=== PATIENT | female | born 1990 | race Caucasian/White ===

== ENCOUNTER 2016-07-31 08:07 | Inpatient (IN) | payer BC, OTHER ==
[2016-07-31] MEDS ORDERED: Sodium Chloride 0.9% 10 ML Syringe FLUSH PRN (09:31)
[2016-07-31] MEDS ORDERED: Nalbuphine 20 MG/1 ML Amp IVPUSH PRN (09:31)
[2016-07-31] MEDS ORDERED: Lidocaine 1% 50 ML MDV INJECT ONE (09:31)
[2016-07-31] MEDS ORDERED: Ondansetron 4 MG Tab.DIS PO PRN (09:31)
[2016-07-31] MEDS ORDERED: Oxytocin/Lactated Ringers 10 UNIT/1,000 ML BAG IV SCH ×2 (09:45→19:50)
--- NOTE | 2016-07-31 15:58 | PCM.PREANE ---
Preanesthetic Assessment - Anesthesia/Transfusion/Family Hx Anesthesia History: Prior Anesthesia Without Reaction Family History of Anesthesia Reaction: No Transfusion History: No Prior Transfusion(s) - Review of Systems General: No Symptoms Pulmonary: No Symptoms Cardiovascular: No Symptoms Gastrointestinal: Vomiting Neurological: Seizure (Epilepsy ) Other: Reports: None - Physical Assessment NPO Status Date: 07/31/16 NPO Status Time: 12:30 Pulse: 83 O2 Sat by Pulse Oximetry: 98 Respiratory Rate: 16 Blood Pressure: 122/72 Temperature: 98.2 C Vital Signs: Last Vital Signs Temp 37.3 C 07/31/16 10:00 Pulse 98 07/31/16 10:00 Resp 16 07/31/16 10:00 BP 122/72 07/31/16 10:00 Pulse Ox 98 07/31/16 10:00 Height: 1.65 m Weight: 92.986 kg ASA Class: 2 Mental Status: Alert & Oriented x3 Airway Class: Mallampati = 1 Dentition: Reports: Normal Dentition Thyro-Mental Finger Breadths: 3 Mouth Opening Finger Breadths: 5 ROM/Head Extension: Full Lungs: Clear to auscultation, Normal respiratory effort Cardiovascular: Regular Rate, Regular Rhythm - Lab Values: Laboratory Last Values WBC 7.63 K/mm3 (3.98-10.04) 07/31/16 09:54 RBC 4.38 M/mm3 (3.98-5.22) 07/31/16 09:54 Hgb 11.5 gm/L (11.2-15.7) 07/31/16 09:54 Hct 35.4 % (34.1-44.9) 07/31/16 09:54 MCV 80.8 fl (79.4-94.8) 07/31/16 09:54 MCH 26.3 pg (25.6-32.2) 07/31/16 09:54 MCHC 32.5 g/dl (32.2-35.5) 07/31/16 09:54 RDW Std Deviation 37.8 fL (36.4-46.3) 07/31/16 09:54 Plt Count 237 K/mm3 (182-369) 07/31/16 09:54 MPV 11.8 fl (9.4-12.3) 07/31/16 09:54 Neut % (Auto) 75.5 % (34.0-71.1) H 07/31/16 09:54 Lymph % (Auto) 16.4 % (19.3-51.7) L 07/31/16 09:54 [place] % (Auto) 6.0 % (4.7-12.5) 07/31/16 09:54 Eos % (Auto) 1.3 (0.7-5.8) 07/31/16 09:54 Baso % (Auto) 0.5 % (0.1-1.2) 07/31/16 09:54 Neut # (Auto) 5.76 K/mm3 (1.56-6.13) 07/31/16 09:54 Lymph # (Auto) 1.25 K/mm3 (1.18-3.74) 07/31/16 09:54 [place] # (Auto) 0.46 K/mm3 (0.24-0.36) H 07/31/16 09:54 Eos # (Auto) 0.10 K/mm3 (0.04-0.36) 07/31/16 09:54 Baso # (Auto) 0.04 K/mm3 (0.01-0.08) 07/31/16 09:54 Urine Color Light yellow (Yellow) 07/31/16 08:07 Urine Appearance Clear (Clear) 07/31/16 08:07 Urine pH 7.0 (5.0-8.0) 07/31/16 08:07 Ur Specific [place] 1.010 (1.005-1.030) 07/31/16 08:07 Urine Protein Negative (Negative) 07/31/16 08:07 Urine Glucose (UA) Negative (Negative) 07/31/16 08:07 Urine Ketones Negative (Negative) 07/31/16 08:07 Urine Occult Blood Trace-intact (Negative) H 07/31/16 08:07 Urine Nitrite Negative (Negative) 07/31/16 08:07 Urine Bilirubin Negative (Negative) 07/31/16 08:07 Urine Urobilinogen 0.2 (0.2-1.0) 07/31/16 08:07 Ur Leukocyte Esterase Trace (Negative) H 07/31/16 08:07 - Allergies Allergies/Adverse Reactions: Allergies Allergy/AdvReac Type Severity Reaction Status Date / Time No Known Allergies Allergy Verified 07/31/16 09:30 - Blood Blood Available: Yes Product(s) Available: PRBC - Anesthesia Plan Pre-Op Medication Ordered: None - Acknowledgements Anesthesia Type Planned: Epidural Pt an Appropriate Candidate for the Planned Anesthesia: Yes Alternatives and Risks of Anesthesia Discussed w Pt/Guardian: Yes Pt/Guardian Understands and Agrees with Anesthesia Plan: Yes PreAnesthesia Questionnaire HEENT History: Reports: Other (see below) Other 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 History: 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 Neurological History: Reports: Seizure, Other (see below) Other Neuro History: last seizure 2 1/2 years ago - SUBSTANCE USE Smoking Status *Q: Never Smoker Days Per Week of Alcohol Use: 0 Recreational Drug Use History: No - HOME MEDS Home Medications: Home Meds Folic Acid 1 mg PO BEDTIME 07/31/16 [History] Vit W-Ca,Fe,FA(<1 mg) [ Vitamins] 1 each PO DAILY 07/31/16 [ History] Zonisamide [Zonegran] 100 mg PO BEDTIME 07/31/16 [History] lamoTRIgine [Lamotrigine] 100 mg PO DAILY 07/31/16 [History] - CURRENT (IN HOUSE) MEDS Current Meds: Current Medications Lactated Ringer's (Ringers, Lactated) 1,000 mls @ 100 mls/hr IV ASDIRECTED CHARANJIT Oxytocin/Lactated Ringer's (Pitocin In Lr 10 Units/1,000 Ml) 10 unit in 1,000 mls @ 500 mls/hr IV TITRATE CHARANJIT Nalbuphine HCl (Nubain) 10 mg IVPUSH Q2H PRN PRN Reason: Pain (moderate 4-6) Ondansetron HCl (Zofran Odt) 4 mg PO Q4H PRN PRN Reason: Nausea/Vomiting Sodium Chloride (Saline Flush) 10 ml FLUSH ASDIRECTED PRN PRN Reason: Keep Vein Open Discontinued Medications Lidocaine HCl (Xylocaine 1%) 2 ml INJECT ONETIME ONE Stop: 07/31/16 09:32
--- NOTE | 2016-07-31 16:34 | PCM.LDHP ---
L&D History of Present Illness - General Date of Service: 07/31/16 Admit Problem/Dx: Patient Status Order with Admit Dx/Problem 07/31/16 09:32 Patient Status [ADT] Routine Admission Diagnosis/Problem Admission Diagnosis/Problem 07/31/16 15:59 Intrauterine at 40-4/7 weeks gestation colin 2-3 minutes apart - early labor. Source of Information: Patient History Limitations: Reports: No limitations - History of Present Illness Introduction:: History of Present Illness: Jacqueline is a 26-year-old female who presents for labor with contractions 2-3 minutes apart and Artificial Rupture of Membranes. She has a history of epilepsy and sees Dr. Ortez for medication management. She has been seizure free for over two years. STEPHAN was 07/27/16 based on early ultrasound done on 01/24/17. She is comfortable still and states contractions were starting to get more intense. She reports good activity. 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 This is her first . STEPHAN was 07/27/16. She had an induction date set for . Menarche was at age 15. Menses are irregular - she does not menstruate monthly. LMP was around 07/02/16. Denies history of STIs. Blood type O positive, antibody negative. Rubella immune, VDRL/RPR negative. HBsAg negative. Chlamydia negative, Gonorrhea negative. HIV screen not done with labs. GBS negative. Tdap given. Past Medical History: - Epilepsy (followed by Dr. Ortez) Past Surgical History: None Medications: 1. Folic Acid 2. Lamotrigine, 100mg 3. 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 Significant other's name is Alvaro. Patient denies use of tobacco products, alcohol, and illicit drugs. Review of Systems: General: No fatigue, night sweats, or chills. Skin: No rashes, lesions, or itching. Head: No headaches, changes in vision. Breasts: No discharge, erythema. Cardiac: No palpitations, chest pain, or history of murmurs. Respiratory: No shortness of breath, wheezing, productive cough. GI: No changes unrelated to . Musculoskeletal: No joint aches/pain. No edema. Psychiatric: No signs or anxiety/depression. Physical Exam: General: The patient is a pleasant, well-nourished female who appears to be her stated age. Skin: No rashes, lesions. HEENT: Normocephalic, atraumatic, pupils equal, round, and reactive to light and accommodation; ears and nose symmetrical. Neck: Supple, without thyromegaly. No lymphadenopathy. Cardio: Regular rate and rhythm, without murmurs. Respiratory: Clear to auscultation, bilaterally. No wheezing. Abdomen: Gravid, size appropriate for gestational age. Cervix: 4cm/90%/-1/soft/anterior Musculosksletal: No edema or deformities noted. Neurologic: normal. 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: Neurological History: Reports: Seizure, Other (see below) Other Neuro History: last seizure 2 1/2 years ago Social & Family History - Family History Family Medical History: Noncontributory - Tobacco Use Smoking Status *Q: Never Smoker - Recreational Drug Use Recreational Drug Use: No H&P Review of Systems - Review of Systems: Review Of Systems: See Below L&D Exam - Exam Exam: See Below - Vital Signs Vital Signs: Last Vital Signs Temp 98.2 C H 07/31/16 15:58 Pulse 83 07/31/16 15:58 Resp 16 07/31/16 15:58 BP 122/72 07/31/16 15:58 Pulse Ox 98 07/31/16 15:58 Weight: 92.986 kg - Patient Data Lab Results last 24 hrs: Laboratory Results - last 24 hr 07/31/16 07/31/16 Range/Units 08:07 09:54 WBC 7.63 (3.98-10.04) K/mm3 RBC 4.38 (3.98-5.22) M/mm3 Hgb 11.5 (11.2-15.7) gm/L Hct 35.4 (34.1-44.9) % MCV 80.8 (79.4-94.8) fl MCH 26.3 (25.6-32.2) pg MCHC 32.5 (32.2-35.5) g/dl RDW Std Deviation 37.8 (36.4-46.3) fL Plt Count 237 (182-369) K/mm3 MPV 11.8 (9.4-12.3) fl Neut % (Auto) 75.5 H (34.0-71.1) % Lymph % (Auto) 16.4 L (19.3-51.7) % [place] % (Auto) 6.0 (4.7-12.5) % Eos % (Auto) 1.3 (0.7-5.8) Baso % (Auto) 0.5 (0.1-1.2) % Neut # (Auto) 5.76 (1.56-6.13) K/mm3 Lymph # (Auto) 1.25 (1.18-3.74) K/mm3 [place] # (Auto) 0.46 H (0.24-0.36) K/mm3 Eos # (Auto) 0.10 (0.04-0.36) K/mm3 Baso # (Auto) 0.04 (0.01-0.08) K/mm3 Urine Color Light yellow (Yellow) Urine Appearance Clear (Clear) Urine pH 7.0 (5.0-8.0) Ur Specific [place] 1.010 (1.005-1.030) Urine Protein Negative (Negative) Urine Glucose (UA) Negative (Negative) Urine Ketones Negative (Negative) Urine Occult Blood Trace-intact H (Negative) Urine Nitrite Negative (Negative) Urine Bilirubin Negative (Negative) Urine Urobilinogen 0.2 (0.2-1.0) Ur Leukocyte Esterase Trace H (Negative) Result Diagrams: 07/31/16 09:54 Problem List Initiated/Reviewed/Updated: Yes Orders Last 24hrs: Active Orders 24 hr Category Date Time Status Patient Status [ADT] Routine ADT 07/31/16 09:32 Active Activity as Tolerated [RC] PFP Care 07/31/16 09:31 Active Communication Order [RC] ASDIRECTED Care 07/31/16 09:31 Active Heart Tones [RC] ASDIRECTED Care 07/31/16 09:31 Active Notify Provider [RC] PFP Care 07/31/16 09:31 Active Notify Provider [RC] PRN Care 07/31/16 09:31 Active Peripheral IV Care [RC] . DIRECTED Care 07/31/16 09:31 Active Pump Management, Intrathecal [RC] ASDIRECTED Care 07/31/16 09:31 Active Vital Signs [RC] PER UNIT ROUTINE Care 07/31/16 09:31 Active Clear Liquid Diet [DIET] Diet 07/31/16 Lunch Active Regular Diet [DIET] Diet 07/31/16 Lunch Active Lactated Ringers [Ringers, Lactated] 1,000 ml Med 07/31/16 09:45 Active IV ASDIRECTED Nalbuphine [Nubain] Med 07/31/16 09:31 Active 10 mg IVPUSH Q2H PRN Ondansetron [Zofran ODT] Med 07/31/16 09:31 Active 4 mg PO Q4H PRN Oxytocin/Lactated Ringers [Pitocin in LR 10 Units/1,000 Med 07/31/16 09:45 Active ML] 10 unit in 1,000 ml IV TITRATE Sodium Chloride 0.9% [Saline Flush] Med 07/31/16 09:31 Active 10 ml FLUSH ASDIRECTED PRN Electronic Heart Tones Ext w TOCO [WOMSER] Oth 07/31/16 09:31 Ordered Routine Electronic Heart Tones Internal [WOMSER] Per Unit Oth 07/31/16 09:31 Ordered Routine Peripheral IV Insertion Adult [OM.PC] Routine Oth 07/31/16 09:31 Ordered Resuscitation Status Routine Resus Stat 07/31/16 09:31 Ordered Medication Orders Lactated Ringer's (Ringers, Lactated) 1,000 mls @ 100 mls/hr IV ASDIRECTED [facility] Oxytocin/Lactated Ringer's (Pitocin In Lr 10 Units/1,000 Ml) 10 unit in 1,000 mls @ 500 mls/hr IV TITRATE CHARANJIT Nalbuphine HCl (Nubain) 10 mg IVPUSH Q2H PRN PRN Reason: Pain (moderate 4-6) Ondansetron HCl (Zofran Odt) 4 mg PO Q4H PRN PRN Reason: Nausea/Vomiting Sodium Chloride (Saline Flush) 10 ml FLUSH ASDIRECTED PRN PRN Reason: Keep Vein Open Assessment/Plan Comment:: Assessment: 1. Intrauterine at 40-4/7 weeks gestation - early labor with AROM. 2. Plans a natural labor. 3. Plans to breast feed. 4. Tdap given. 5. GBS negative. Plan: 1. Anticipate normal spontaneous vaginal delivery. 2. Epidural if desired/changes mind. 3. Encourage breast feeding behaviors.
[2016-07-31] MEDS: Lactated Ringers 1,000 ML IV SCH ×2 (16:43→18:53)
[2016-07-31] MEDS ORDERED: Ondansetron 4 MG/2 ML SDV IVPUSH PRN (16:53)
[2016-07-31] MEDS ORDERED: ePHEDrine 50 MG/ML SDV IVPUSH PRN (16:53)
[2016-07-31] MEDS ORDERED: fentaNYL 100 MCG/2 ML SDV EPIDUR PRN (16:53)
[2016-07-31] MEDS ORDERED: Bupivacaine 0.25% 10 ML SDV ONE (17:00)
[2016-07-31] MEDS ORDERED: Bupivacaine/fentaNYL/NS 100 ML Bag EPIDUR SCH (17:00)
--- NOTE | 2016-07-31 20:44 | PCM.SN ---
- Free Text/Narrative Note: Jacqueline is a 26-year-old 1 now para 1-0-0-1 female who presented to L&D with regular contractions, in early labor. She progressed to complete and pushed for less than one hour. Contractions were augmented with IV Pitocin because they were 6-8 minutes apart. At 2014 hours, she delivered a 3600g (7lbs 15oz), 20 in long, male infant in OA position over a first-degree laceration. Apgars were 8 and 9 at 1 and 5 minutes, respectively. Cord blood was obtained. 3-vessel cord was noted. IV Pitocin was then started, wide-open to help with uterine contractions. The first-degree laceration was repaired with a running stitch of 3-0 monocryl. The placenta then delivered at 2024 hours in [place] presentation. It was examined and found to be intact. EBL 100cc. Patient plans to bottle feed.
[2016-07-31] MEDS ORDERED: Witch Hazel Medicated Pads 100/Jar TOP PRN (21:22)
[2016-07-31] MEDS ORDERED: Docusate Sodium 100 MG Cap PO PRN (21:22)
[2016-07-31] MEDS ORDERED: Acetaminophen 325 MG Tab PO PRN (21:22)
[2016-07-31] MEDS: Ibuprofen 600 MG Tab PO PRN (21:46)
[2016-07-31] MEDS: Benzocaine/Menthol 20%-0.5% Spray 56 GM Canister TOP PRN (21:47)
--- NOTE | 2016-08-01 08:09 | PCM48HPAN ---
Post Anesthesia Note - EVALUATION WITHIN 48HRS OF ANESTHETIC Vital Signs in Normal Range: Yes Patient Participated in Evaluation: Yes Respiratory Function Stable: Yes Airway Patent: Yes Cardiovascular Function Stable: Yes Hydration Status Stable: Yes Pain Control Satisfactory: Yes Nausea and Vomiting Control Satisfactory: Yes Mental Status Recovered: Yes - COMMENTS/OBSERVATIONS Free Text/Narrative:: Pt reports doing werry well. epidural worked great, no discomfort this am. no n /v, headache, or f/c. up to restroom and ambulating both without problem. taking p.o. Very pleased with anesthia service.
[2016-08-01] MEDS: LAMOTRIGINE 100 MG PO SCH (10:12)
[2016-08-01] MEDS: Ibuprofen 600 MG Tab PO PRN ×2 (10:16→18:56)
[2016-08-02] MEDS: Ibuprofen 600 MG Tab PO PRN ×2 (00:14→07:44)
[2016-08-02 04:18] VITALS: BP 106/50
--- NOTE | 2016-08-02 07:01 | PCM.DCSUM1 ---
Discharge Summary - Discharge Data Discharge Date: 08/02/16 Discharge Disposition: Home, Self-Care 01 Condition: Good - Patient Summary/Data Hospital Course: Jacqueline is a 26-year-old 1 now para 1-0-0-1 female who presented to L&D with regular contractions, in early labor. She progressed to complete and pushed for less than one hour. Contractions were augmented with IV Pitocin because they were 6-8 minutes apart. At 2014 hours, she delivered a 3600g (7lbs 15oz), 20 in long, male in OA position over a first-degree laceration. Apgars were 8 and 9 at 1 and 5 minutes, respectively. Cord blood was obtained. 3-vessel cord was noted. IV Pitocin was then started, wide-open to help with uterine contractions. The first-degree laceration was repaired with a running stitch of 3-0 monocryl. The placenta then delivered at 202 hours in [place] presentation. It was examined and found to be intact. EBL 100cc. Patient plans to bottle feed. - Patient Instructions Diet: Usual Diet as Tolerated Activity: No Strenuous Activities Activity, Other: pelvic rest Driving: May Drive Today Notify Provider of: Fever, Increased Pain, Swelling and Redness, Drainage - Discharge Plan Home Medications: Home Meds Folic Acid 1 mg PO BEDTIME 07/31/16 [History] Vit W-Ca,Fe,FA(<1 mg) [ Vitamins] 1 each PO DAILY 07/31/16 [ History] Zonisamide [Zonegran] 100 mg PO BEDTIME 07/31/16 [History] lamoTRIgine [Lamotrigine] 100 mg PO DAILY 07/31/16 [History] Referrals: Felix Dubois MD [Physician] - (6 weeks) - Discharge Summary/Plan Comment DC Time >30 min.: No - General Info Date of Service: 08/02/16 - Review of Systems General: Reports: No Symptoms HEENT: Reports: no symptoms Pulmonary: Reports: no symptoms Cardiovascular: Reports: No Symptoms Gastrointestinal: Reports: No symptoms Genitourinary: Reports: no symptoms Musculoskeletal: Reports: no symptoms Skin: Reports: no symptoms Neurological: Reports: No Symptoms Psychiatric: Reports: no symptoms - Patient Data Vitals - Most Recent: Last Vital Signs Temp 36.6 C 08/02/16 04:17 Pulse 80 08/02/16 04:17 Resp 16 08/02/16 04:17 BP 106/50 L 08/02/16 04:17 Pulse Ox 99 08/02/16 04:17 Weight - Most Recent: 92.986 kg I&O - Last 24 hours: Intake & Output 08/01/16 08/02/16 08/02/16 22:59 06:59 14:59 Intake Total 210 Balance 210 Med Orders - Current: Current Medications Acetaminophen (Tylenol) 650 mg PO Q4H PRN PRN Reason: mild pain or fever Last Admin: 08/01/16 20:39 Dose: 650 mg Benzocaine/Menthol (Dermoplast Pain Relief [place]) 0 gm TOP ASDIRECTED PRN PRN Reason: Perineal Comfort Measure Last Admin: 07/31/16 21:47 Dose: 1 can Docusate Sodium (Colace) 100 mg PO BID PRN PRN Reason: Constipation Last Admin: 08/01/16 20:40 Dose: 100 mg Ibuprofen (Motrin) 600 mg PO Q4H PRN PRN Reason: Mild pain or fever Last Admin: 08/02/16 00:14 Dose: 600 mg (Zonisamide [ Zonegran] 100 Mg) *Own Med 100 mg PO BEDTIME [facility] Last Admin: 08/02/16 00:17 Dose: 100 mg (Lamotrigine [ Lamotrigine] 100 Mg) Own Med 100 mg PO DAILY [facility] Last Admin: 08/01/16 10:12 Dose: 100 mg Witch Ronit (Tucks) 1 pad TOP ASDIRECTED PRN PRN Reason: Hemorrhoid pain Last Admin: 07/31/16 21:48 Dose: 1 pad Discontinued Medications Ephedrine Sulfate (Ephedrine Sulfate) 5 mg IVPUSH ASDIRECTED PRN PRN Reason: Hypotension Fentanyl (Sublimaze) 100 mcg EPIDUR Q3H PRN PRN Reason: Pain Last Admin: 07/31/16 17:04 Dose: 100 mcg Fentanyl/Bupivacaine HCl (Fentanyl/Bupivacaine/Ns 2 Mcg-0.125% 100 Ml) 100 ml EPIDUR ASDIRECTED [facility] Last Admin: 07/31/16 17:04 Dose: 100 ml Lactated Ringer's (Ringers, Lactated) 1,000 mls @ 100 mls/hr IV ASDIRECTED CHARANJIT Last Admin: 07/31/16 18:53 Dose: 999 mls/hr Oxytocin/Lactated Ringer's (Pitocin In Lr 10 Units/1,000 Ml) 10 unit in 1,000 mls @ 500 mls/hr IV TITRATE CHARANJIT Oxytocin/Lactated Ringer's (Pitocin In Lr 10 Units/1,000 Ml) 10 unit in 1,000 mls @ 12 mls/hr IV TITRATE CHARANJIT; 2 MUNITS/MIN PRN Reason: Protocol Last Titration: 07/31/16 20:16 Dose: 500 mls/hr Lidocaine HCl (Xylocaine 1%) 2 ml INJECT ONETIME ONE Stop: 07/31/16 09:32 Last Admin: 08/01/16 00:52 Dose: Not Given Nalbuphine HCl (Nubain) 10 mg IVPUSH Q2H PRN PRN Reason: Pain (moderate 4-6) Ondansetron HCl (Zofran Odt) 4 mg PO Q4H PRN PRN Reason: Nausea/Vomiting Ondansetron HCl (Zofran) 4 mg IVPUSH ONETIME PRN PRN Reason: Nausea/Vomiting Sodium Chloride (Saline Flush) 10 ml FLUSH ASDIRECTED PRN PRN Reason: Keep Vein Open - Exam General: Reports: alert, oriented HEENT: Reports: Pupils equal, Pupils reactive, EOMI, Mucous membr. moist/pink Neck: Reports: supple Lungs: Reports: Clear to auscultation, Normal respiratory effort Cardiovascular: Reports: Regular Rate, Regular Rhythm Abdomen: Reports: bowel sounds present, soft, no tenderness, no distension (Female) Exam: Normal external exam, Normal speculum exam, Normal bimanual exam Rectal (Female) Exam: Normal Exam, Normal rectal tone Extremities: Reports: no edema, normal pulses Skin: Reports: warm, dry, intact Wound/Incisions: Reports: healing well Neurological: Reports: no new focal deficit Psy/Mental Status: Reports: alert, normal affect, normal mood *Q Meaningful Use (DIS) - VTE *Q VTE Criteria *Q: - Stroke *Q Stroke Criteria *Q: - AMI *Q AMI Criteria *Q:
[2016-08-02] MEDS: LAMOTRIGINE 100 MG PO SCH (09:11)
[2016-08-02] MEDS: Benzocaine/Menthol 20%-0.5% Spray 56 GM Canister TOP PRN (10:21)
== END 2016-08-02 10:50 | disposition home or self-care (01) | DRG 560 ==
LOC: JD.OBCHECK 08:07 → JD.OB 09:20 → JD.OBCHECK 09:31 → JD.OB 09:32 → OBSVTOIN 20:14 → JD.OB 20:14
PROVIDERS: ADMIT Obstetrics & Gynecology; ATTEND Obstetrics & Gynecology
PROC: 10E0XZZ Delivery of Products of Conception, External Approach (ICD-10-PCS; principal; 2016-07-31)
PROC: 0HQ9XZZ Repair Perineum Skin, External Approach (ICD-10-PCS; 2016-07-31)
PROC: 10907ZC Drainage of Amniotic Fluid, Therapeutic from Products of Conception, Via Natural or Artificial Opening (ICD-10-PCS; 2016-07-31)
PROC: 00HU33Z Insertion of Infusion Device into Spinal Canal, Percutaneous Approach (ICD-10-PCS; 2016-07-31)
PROC: 3E0R3CZ (ICD-10-PCS; 2016-07-31)
DX: O70.0 First degree perineal laceration during delivery (principal); Z3A.41 41 weeks gestation of pregnancy; Z37.0 Single live birth; O75.89 Other specified complications of labor and delivery; G40.909 Epilepsy, unspecified, not intractable, without status epilepticus; Z79.899 Other long term (current) drug therapy
CPT/HCPCS: 36415; 81003; 85025; 85027; A9270-GY; J2590; J3010; J7120

== ENCOUNTER 2018-05-01 19:26 | Inpatient (IN) | payer BC ==
[2018-05-01] MEDS ORDERED: Calcium Carbonate 500 MG Tab.Chew PO PRN (20:23)
[2018-05-01] MEDS ORDERED: Ondansetron 4 MG/2 ML SDV IVPUSH PRN (20:23)
[2018-05-01] MEDS ORDERED: Lidocaine 1% 50 ML MDV INJECT ONE (20:23)
[2018-05-01] MEDS ORDERED: Sodium Chloride 0.9% 10 ML Syringe FLUSH PRN (20:23)
[2018-05-01] MEDS ORDERED: Nalbuphine 20 MG/ML 1 ML Syringe IVPUSH PRN (20:23)
[2018-05-01] MEDS ORDERED: Oxytocin/Lactated Ringers 10 UNIT/1,000 ML BAG IV SCH (20:30)
[2018-05-01] MEDS ORDERED: ePHEDrine 50 MG/ML SDV IVPUSH PRN (21:26)
[2018-05-01] MEDS ORDERED: diphenhydrAMINE 50 MG/ML SDV IVPUSH PRN (21:26)
[2018-05-01] MEDS ORDERED: fentaNYL 100 MCG/2 ML SDV EPIDUR PRN (21:26)
[2018-05-01] MEDS ORDERED: Bupivacaine/fentaNYL/NS 100 ML Bag EPIDUR SCH (21:30)
[2018-05-01] MEDS ORDERED: fentaNYL 100 MCG/2 ML SDV ONE (21:44)
[2018-05-01] MEDS ORDERED: fentaNYL/Bupivacaine-NS 2 MCG/ML-0.125%/PF 100 ML Bag EP SCH (21:50)
[2018-05-01] MEDS ORDERED: Bupivacaine 0.25% 10 ML SDV ONE (22:00)
--- NOTE | 2018-05-01 22:08 | PCM.PREANE ---
Preanesthetic Assessment - Anesthesia/Transfusion/Family Hx Anesthesia History: Prior Anesthesia Without Reaction Family History of Anesthesia Reaction: No Transfusion History: No Prior Transfusion(s) - Review of Systems General: Fatigue Pulmonary: No Symptoms Cardiovascular: No Symptoms Gastrointestinal: Abdominal Pain (labor contractions) Neurological: Seizure Other: Reports: None - Physical Assessment Pulse: 78 O2 Sat by Pulse Oximetry: 98 Respiratory Rate: 22 Blood Pressure: 134/86 Temperature: 36.3 C Height: 1.68 m Weight: 100.244 kg ASA Class: 2 Mental Status: Alert & Oriented x3 Airway Class: Mallampati = 1 Dentition: Reports: Normal Dentition Thyro-Mental Finger Breadths: 3 Mouth Opening Finger Breadths: 3 ROM/Head Extension: Full Lungs: Clear to Auscultation, Normal Respiratory Effort Cardiovascular: Regular Rate, Regular Rhythm - Lab Values: Laboratory Last Values WBC 6.38 K/mm3 (3.98-10.04) 05/01/18 20:50 RBC 4.24 M/mm3 (3.98-5.22) 05/01/18 20:50 Hgb 10.0 gm/L (11.2-15.7) L 05/01/18 20:50 Hct 31.9 % (34.1-44.9) L 05/01/18 20:50 MCV 75.2 fl (79.4-94.8) L 05/01/18 20:50 MCH 23.6 pg (25.6-32.2) L 05/01/18 20:50 MCHC 31.3 g/dl (32.2-35.5) L 05/01/18 20:50 RDW Std Deviation 40.9 fL (36.4-46.3) 05/01/18 20:50 Plt Count 283 K/mm3 (182-369) 05/01/18 20:50 MPV 11.4 fl (9.4-12.3) 05/01/18 20:50 - Allergies Allergies/Adverse Reactions: Allergies Allergy/AdvReac Type Severity Reaction Status Date / Time No Known Allergies Allergy Verified 07/31/16 09:30 - Anesthesia Plan Pre-Op Medication Ordered: None - Acknowledgements Anesthesia Type Planned: Epidural Pt an Appropriate Candidate for the Planned Anesthesia: Yes Alternatives and Risks of Anesthesia Discussed w Pt/Guardian: Yes Pt/Guardian Understands and Agrees with Anesthesia Plan: Yes PreAnesthesia Questionnaire HEENT History: Reports: Other (See Below) Other HEENT History: wears contacts Gastrointestinal History: Reports: GERD 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 History: Reports: Seizure, Other (See Below) Other Neuro History: last seizure 2 1/2 years ago - HOME MEDS Home Medications: Home Meds Folic Acid 1 mg PO BEDTIME 07/31/16 [History] Vit Calc,Iron,Folic [ Vitamins] 1 each PO DAILY 07/31/16 [ History] Zonisamide [Zonegran] 100 mg PO BEDTIME 07/31/16 [History] lamoTRIgine [Lamotrigine] 100 mg PO DAILY 07/31/16 [History] - CURRENT (IN HOUSE) MEDS Current Meds: Current Medications Calcium Carbonate/Glycine (Tums) 1,000 mg PO Q2H PRN PRN Reason: Indigestion Diphenhydramine HCl (Benadryl) 25 mg IVPUSH Q6H PRN PRN Reason: Itching Ephedrine Sulfate (Ephedrine Sulfate) 5 mg IVPUSH ASDIRECTED PRN PRN Reason: HYPOTENTSION Fentanyl (Sublimaze) 100 mcg EPIDUR Q3H PRN PRN Reason: Pain Last Admin: 05/01/18 21:55 Dose: 100 mcg Fentanyl/Bupivacaine HCl (Zwwsedia-Lkztm-Vn 2 Mcg/Ml-0.125%) 100 ml EP ASDIRECTED CHARANJIT Last Admin: 05/01/18 21:56 Dose: 100 ml Lactated Ringer's (Ringers, Lactated) 1,000 mls @ 100 mls/hr IV ASDIRECTED [facility] Oxytocin/Lactated Ringer's (Pitocin In Lr 10 Units/1,000 Ml) 10 unit in 1,000 mls @ 500 mls/hr IV .CONTINUOUS CHARANJIT Nalbuphine HCl (Nubain) 10 mg IVPUSH Q2H PRN PRN Reason: pain Ondansetron HCl (Zofran) 4 mg IVPUSH Q4H PRN PRN Reason: Nausea/Vomiting Sodium Chloride (Saline Flush) 10 ml FLUSH ASDIRECTED PRN PRN Reason: Keep Vein Open Discontinued Medications Fentanyl (Sublimaze) Confirm Administered Dose 100 mcg .ROUTE .K-MED ONE Stop: 05/01/18 21:45 Fentanyl/Bupivacaine HCl (Fentanyl/Bupivacaine/Ns 2 Mcg-0.125% 100 Ml) 100 ml EPIDUR ASDIRECTED [facility] Lidocaine HCl (Xylocaine 1%) 20 ml INJECT ONETIME ONE Stop: 05/01/18 20:24
--- NOTE | 2018-05-01 23:33 | PCM.LDHP ---
L&D History of Present Illness - General Date of Service: 05/01/18 Admit Problem/Dx: Patient Status Order with Admit Dx/Problem 05/01/18 20:23 Patient Status [ADT] Routine Admission Diagnosis/Problem Admission Diagnosis/Problem Active labor Source of Information: Patient History Limitations: Reports: No Limitations - History of Present Illness Introduction:: 28 year old at 40w0d here in labor. PNC with Dr Darling complicated by epilepsy and elevated one hour with a normal three hour Pain Score: 10 - Related Data Allergies/Adverse Reactions: Allergies Allergy/AdvReac Type Severity Reaction Status Date / Time No Known Allergies Allergy Verified 07/31/16 09:30 Home Medications: Home Meds Folic Acid 1 mg PO BEDTIME 07/31/16 [History] Vit Calc,Iron,Folic [ Vitamins] 1 each PO DAILY 07/31/16 [ History] Zonisamide [Zonegran] 100 mg PO BEDTIME 07/31/16 [History] lamoTRIgine [Lamotrigine] 100 mg PO DAILY 07/31/16 [History] Past Medical History HEENT History: Reports: Other (See Below) Other HEENT History: wears contacts Gastrointestinal History: Reports: GERD 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 History: Reports: Neurological History: Reports: Seizure, Other (See Below) Other Neuro History: last seizure 2 1/2 years ago Social & Family History - Family History Family Medical History: Noncontributory H&P Review of Systems - Review of Systems: Review Of Systems: See Below General: Reports: No Symptoms HEENT: Reports: No Symptoms Pulmonary: Reports: No Symptoms Cardiovascular: Reports: No Symptoms Gastrointestinal: Reports: No Symptoms Genitourinary: Reports: No Symptoms Musculoskeletal: Reports: No Symptoms Skin: Reports: No Symptoms Psychiatric: Reports: No Symptoms Neurological: Reports: No Symptoms Hematologic/Lymphatic: Reports: No Symptoms Immunologic: Reports: No Symptoms L&D Exam - Exam Exam: See Below - Vital Signs Vital Signs: Last Vital Signs Temp 36.3 C 05/01/18 22:08 Pulse 78 05/01/18 22:08 Resp 22 H 05/01/18 22:08 BP 134/86 05/01/18 22:08 Pulse Ox 98 05/01/18 22:08 Weight: 100.244 kg - OB Specific Contraction Intensity: Moderate Heart Tones per Min: 145 Heart Rate (FHR) Variability: Moderate (6-25 bmp) Presentation: Vertex - Esparza Score Esparza Score Cervix Position: Midposition Esparza Score Consistency: Soft Esparza Score Effacement: 51-70% Esparza Score Dilation: > 5 cm Esparza Score Infant's Station: -1 ,0 Esparza Score Total: 10 - Exam General: Alert, Oriented HEENT: PERRLA, Conjunctiva Clear, EACs Clear, EOMI, Hearing Intact, Mucosa Moist & [place], Nares Patent, Normal Nasal Septum, Posterior Pharynx Clear, TMs Clear Neck: Supple, Trachea Midline Lungs: Clear to Auscultation, Normal Respiratory Effort Cardiovascular: Regular Rate, Regular Rhythm GI/Abdominal Exam: Normal Bowel Sounds, Soft, Non-Tender, No Organomegaly, No Distention, No Abnormal Bruit, No Mass, Pelvis Stable Rectal Exam: Normal Exam, Normal Rectal Tone Genitourinary: Normal external exam, Normal bimanual exam, Normal speculum exam Extremities: Normal Inspection, Normal Range of Motion, Non-Tender, No Pedal Edema, Normal Capillary Refill Neurological: Cranial Nerves Intact, Reflexes Equal Bilateral Psychiatric: Alert, Normal Affect, Normal Mood - Patient Data Lab Results Last 24 hrs: Laboratory Results - last 24 hr 05/01/18 Range/Units 20:50 WBC 6.38 (3.98-10.04) K/mm3 RBC 4.24 (3.98-5.22) M/mm3 Hgb 10.0 L (11.2-15.7) gm/L Hct 31.9 L (34.1-44.9) % MCV 75.2 L (79.4-94.8) fl MCH 23.6 L (25.6-32.2) pg MCHC 31.3 L (32.2-35.5) g/dl RDW Std Deviation 40.9 (36.4-46.3) fL Plt Count 283 (182-369) K/mm3 MPV 11.4 (9.4-12.3) fl Result Diagrams: 05/01/18 20:50 Problem List Initiated/Reviewed/Updated: Yes Orders Last 24hrs: Active Orders 24 hr Category Date Time Status Patient Status [ADT] Routine ADT 05/01/18 20:23 Active Activity as Tolerated [RC] PFP Care 05/01/18 20:23 Active Communication Order [RC] ASDIRECTED Care 05/01/18 20:23 Active Communication Order [RC] ASDIRECTED Care 05/01/18 21:26 Active Cooling Warming Measures [RC] ASDIRECTED Care 05/01/18 21:26 Active Heart Tones [RC] ASDIRECTED Care 05/01/18 20:24 Active Non Stress Test [RC] PER UNIT ROUTINE Care 05/01/18 20:23 Active Notify Provider [RC] ASDIRECTED Care 05/01/18 21:26 Active Notify Provider [RC] PFP Care 05/01/18 20:23 Active Notify Provider [RC] PRN Care 05/01/18 20:23 Active Oxygen Therapy [RC] ASDIRECTED Care 05/01/18 21:26 Active Peripheral IV Care [RC] . DIRECTED Care 05/01/18 20:24 Active Pulse Oximetry [RC] ASDIRECTED Care 05/01/18 21:26 Active Urinary Catheter Assessment [RC] ASDIRECTED Care 05/01/18 20:23 Active Verify Patient Consent Obtain [RC] ASDIRECTED Care 05/01/18 21:26 Active Vital Signs [RC] PER UNIT ROUTINE Care 05/01/18 20:23 Active Vital Signs [RC] Q1H Care 05/01/18 21:26 Active Regular Diet [DIET] Diet 05/01/18 Dinner Active RAPID PLASMA REAGIN,RPR [CHEM] Routine Lab 05/01/18 20:23 Ordered Calcium Carbonate [Tums] Med 05/01/18 20:23 Active 1,000 mg PO Q2H PRN Lactated Ringers [Ringers, Lactated] 1,000 ml Med 05/01/18 20:30 Active IV ASDIRECTED Nalbuphine [Nubain] Med 05/01/18 20:23 Active 10 mg IVPUSH Q2H PRN Ondansetron [Zofran] Med 05/01/18 20:23 Active 4 mg IVPUSH Q4H PRN Oxytocin/Lactated Ringers [Pitocin in LR 10 Units/1,000 Med 05/01/18 20:30 Active ML] 10 unit in 1,000 ml IV .CONTINUOUS Sodium Chloride 0.9% [Saline Flush] Med 05/01/18 20:23 Active 10 ml FLUSH ASDIRECTED PRN diphenhydrAMINE [Benadryl] Med 05/01/18 21:26 Active 25 mg IVPUSH Q6H PRN ePHEDrine [ePHEDrine sulfate] Med 05/01/18 21:26 Active 5 mg IVPUSH ASDIRECTED PRN fentaNYL [Sublimaze] Med 05/01/18 21:26 Active 100 mcg EPIDUR Q3H PRN fentaNYL/Bupivacaine/NS/PF [[id number]-[id number] 2 MCG/ML- Med 05/01/18 21:50 Active 0.125%] 100 ml EP ASDIRECTED Electronic Heart Tones Ext w TOCO [WOMSER] Oth 05/01/18 20:23 Ordered Routine Electronic Heart Tones Internal [WOMSER] Per Unit Oth 05/01/18 20:23 Ordered Routine Peripheral IV Insertion Adult [OM.PC] Routine Oth 05/01/18 20:23 Ordered Resuscitation Status Routine Resus Stat 05/01/18 20:23 Ordered Medication Orders Calcium Carbonate/Glycine (Tums) 1,000 mg PO Q2H PRN PRN Reason: Indigestion Diphenhydramine HCl (Benadryl) 25 mg IVPUSH Q6H PRN PRN Reason: Itching Ephedrine Sulfate (Ephedrine Sulfate) 5 mg IVPUSH ASDIRECTED PRN PRN Reason: HYPOTENTSION Fentanyl (Sublimaze) 100 mcg EPIDUR Q3H PRN PRN Reason: Pain Last Admin: 05/01/18 21:55 Dose: 100 mcg Fentanyl/Bupivacaine HCl (Gctnzeps-Wloay-Ni 2 Mcg/Ml-0.125%) 100 ml EP ASDIRECTED CHARANJIT Last Admin: 05/01/18 21:56 Dose: 100 ml Lactated Ringer's (Ringers, Lactated) 1,000 mls @ 100 mls/hr IV ASDIRECTED CHARANJIT Oxytocin/Lactated Ringer's (Pitocin In Lr 10 Units/1,000 Ml) 10 unit in 1,000 mls @ 500 mls/hr IV .CONTINUOUS CHARANJIT Nalbuphine HCl (Nubain) 10 mg IVPUSH Q2H PRN PRN Reason: pain Ondansetron HCl (Zofran) 4 mg IVPUSH Q4H PRN PRN Reason: Nausea/Vomiting Sodium Chloride (Saline Flush) 10 ml FLUSH ASDIRECTED PRN PRN Reason: Keep Vein Open Assessment/Plan Comment:: Term labor. Anticipate unless otherwise indicated
--- NOTE | 2018-05-01 23:36 | PCM.SN ---
- Free Text/Narrative Note: Stage I - Patient presented in active labor. SROM clear fluid. Epidural for anesthesia. Progressed to complete with overall reassuring FHT. Stage II - of baby boy at 2303, 3370, 11/26. Head delivered LOP in a controlled manner over intact perineum. Body and shoulders followed atraumatically. Positive cry. Cord clamped and cut. Baby to maternal abdomen then warmer. Stage III - of intact placenta. 3vc. Small 1st degree mll repaired with 3-0 vicryl. EBL 100
[2018-05-01] MEDS ORDERED: Witch Hazel Medicated Pads 100/Jar TOP PRN (23:59)
[2018-05-01] MEDS ORDERED: Benzocaine/Menthol 20%-0.5% Spray 56 GM Canister TOP PRN (23:59)
[2018-05-01] MEDS ORDERED: Lanolin 100% Cream 7 GM Tube TOP PRN (23:59)
[2018-05-02] MEDS: Lactated Ringers 1,000 ML IV SCH ×2 (00:10→00:11)
[2018-05-02] MEDS: Ibuprofen 600 MG Tab PO PRN ×3 (00:13→19:45)
--- NOTE | 2018-05-02 08:44 | PCM.PNPP ---
- General Info Date of Service: 05/02/18 Functional Status: Reports: Pain Controlled - Review of Systems General: Reports: No Symptoms HEENT: Reports: No Symptoms Pulmonary: Reports: No Symptoms Cardiovascular: Reports: No Symptoms Gastrointestinal: Reports: No Symptoms Genitourinary: Reports: No Symptoms Musculoskeletal: Reports: No Symptoms Skin: Reports: No Symptoms Neurological: Reports: No Symptoms Psychiatric: Reports: No Symptoms - General Info Date of Service: 05/02/18 - Patient Data Vital Signs - Most Recent: Last Vital Signs Temp 36.7 C 05/02/18 03:08 Pulse 95 05/02/18 03:08 Resp 16 05/02/18 03:08 BP 114/63 05/02/18 03:08 Pulse Ox 99 05/02/18 03:08 Weight - Most Recent: 100.244 kg I&O - Last 24 Hours: Intake & Output 05/01/18 05/02/18 05/02/18 22:59 06:59 14:59 Intake Total 3000 Balance 3000 Lab Results - Last 24 Hours: Laboratory Results - last 24 hr 05/01/18 Range/Units 20:50 WBC 6.38 (3.98-10.04) K/mm3 RBC 4.24 (3.98-5.22) M/mm3 Hgb 10.0 L (11.2-15.7) gm/L Hct 31.9 L (34.1-44.9) % MCV 75.2 L (79.4-94.8) fl MCH 23.6 L (25.6-32.2) pg MCHC 31.3 L (32.2-35.5) g/dl RDW Std Deviation 40.9 (36.4-46.3) fL Plt Count 283 (182-369) K/mm3 MPV 11.4 (9.4-12.3) fl Med Orders - Current: Current Medications Benzocaine/Menthol (Dermoplast Pain Relief [place]) 0 gm TOP ASDIRECTED PRN PRN Reason: Perineal Comfort Measure Last Admin: 05/02/18 00:13 Dose: 1 canister Emollient Ointment (Lansinoh Hpa) 0 gm TOP ASDIRECTED PRN PRN Reason: Sore Nipples Ibuprofen (Motrin) 600 mg PO Q6H PRN PRN Reason: Mild pain or fever Last Admin: 05/02/18 00:13 Dose: 600 mg Witch Ronit (Tucks) 1 pad TOP ASDIRECTED PRN PRN Reason: Hemorrhoid pain Last Admin: 05/02/18 00:13 Dose: 1 tub Discontinued Medications Calcium Carbonate/Glycine (Tums) 1,000 mg PO Q2H PRN PRN Reason: Indigestion Diphenhydramine HCl (Benadryl) 25 mg IVPUSH Q6H PRN PRN Reason: Itching Ephedrine Sulfate (Ephedrine Sulfate) 5 mg IVPUSH ASDIRECTED PRN PRN Reason: HYPOTENTSION Fentanyl (Sublimaze) 100 mcg EPIDUR Q3H PRN PRN Reason: Pain Last Admin: 05/01/18 21:55 Dose: 100 mcg Fentanyl (Sublimaze) Confirm Administered Dose 100 mcg .ROUTE .STK-MED ONE Stop: 05/01/18 21:45 Fentanyl/Bupivacaine HCl (Fentanyl/Bupivacaine/Ns 2 Mcg-0.125% 100 Ml) 100 ml EPIDUR ASDIRECTED CHARANJIT Fentanyl/Bupivacaine HCl (Mrjmrqck-Zbvbf-Hq 2 Mcg/Ml-0.125%) 100 ml EP ASDIRECTED CHARANJIT Last Admin: 05/01/18 21:56 Dose: 100 ml Lactated Ringer's (Ringers, Lactated) 1,000 mls @ 100 mls/hr IV ASDIRECTED CHARANJIT Last Admin: 05/02/18 00:11 Dose: 100 mls/hr Oxytocin/Lactated Ringer's (Pitocin In Lr 10 Units/1,000 Ml) 10 unit in 1,000 mls @ 500 mls/hr IV .CONTINUOUS CHARANJIT Last Admin: 05/02/18 00:12 Dose: 500 mls/hr Nalbuphine HCl (Nubain) 10 mg IVPUSH Q2H PRN PRN Reason: pain Ondansetron HCl (Zofran) 4 mg IVPUSH Q4H PRN PRN Reason: Nausea/Vomiting Sodium Chloride (Saline Flush) 10 ml FLUSH ASDIRECTED PRN PRN Reason: Keep Vein Open - Interaction Support Person: - Recovery Exam Fundal Tone: Firm Fundal Level: 1 Fingerbreadths Below Umbilicus Fundal Placement: Midline Lochia Amount: Small, Moderate Lochia Color: Rubra/Red Episiotomy/Laceration: Approximated Bladder Status: Voiding Urinary Elimination: Voided - Exam General: Alert, Oriented HEENT: Pupils Equal Neck: Supple Lungs: Clear to Auscultation, Normal Respiratory Effort Cardiovascular: Regular Rate, Regular Rhythm GI/Abdominal Exam: Normal Bowel Sounds, Soft, Non-Tender, No Organomegaly, No Distention, No Abnormal Bruit, No Mass, Pelvis Stable Extremities: Normal Inspection, Normal Range of Motion, Non-Tender, No Pedal Edema, Normal Capillary Refill Neurological: No New Focal Deficit Psy/Mental Status: Alert, Normal Affect, Normal Mood - Problem List Review Problem List Initiated/Reviewed/Updated: Yes - My Orders Last 24 Hours: My Active Orders 05/01/18 20:23 Non Stress Test [RC] PER UNIT ROUTINE Urinary Catheter Assessment [RC] ASDIRECTED Vital Signs [RC] PER UNIT ROUTINE Resuscitation Status Routine 05/01/18 20:24 Heart Tones [RC] ASDIRECTED Peripheral IV Care [RC] . DIRECTED 05/01/18 23:59 Activity as Tolerated [RC] PER UNIT ROUTINE Vital Signs [RC] 03,09,15,21 Benzocaine/Menthol [Dermoplast Pain Relief [place]] See Dose Instructions TOP ASDIRECTED PRN Ibuprofen [Motrin] 600 mg PO Q6H PRN Lanolin [Lansinoh HPA] See Dose Instructions TOP ASDIRECTED PRN Witch Ronit [Tucks] 1 pad TOP ASDIRECTED PRN Assess Lochia [WOMSER] Per Unit Routine Assess Uterine Involution [WOMSER] Per Unit Routine Breast Pump [WOMSER] Per Unit Routine Heat Therapy [OM.PC] PRN Medication Administration Instruction [OM.PC] Routine Perineal Care [OM.PC] Per Unit Routine Sitz Bath [OM.PC] Per Unit Routine 05/02/18 23:59 Heat Therapy [OM.PC] PRN 05/02/18 Breakfast Regular Diet [DIET] - Assessment Assessment:: Term delivery. Doing well. No issues. Routine care PPD1.
[2018-05-02] MEDS ORDERED: Docusate Sodium 100 MG Cap PO PRN (18:25)
[2018-05-03] MEDS: Ibuprofen 600 MG Tab PO PRN (03:34)
--- NOTE | 2018-05-03 10:09 | PCM.DCSUM1 ---
Discharge Summary - Hospital Course Diagnosis: Stroke: No - Discharge Data Discharge Date: 05/03/18 Discharge Disposition: Home, Self-Care 01 Condition: Good - Patient Instructions Diet: Usual Diet as Tolerated Activity: No Strenuous Activities Driving: May Drive Today Showering/Bathing: May Shower Notify Provider of: Fever, Increased Pain, Swelling and Redness, Drainage, Nausea and/or Vomiting - Discharge Plan *PRESCRIPTION DRUG MONITORING PROGRAM REVIEWED*: No *COPY OF PRESCRIPTION DRUG MONITORING REPORT IN PATIENT ANJEL: No Home Medications: Home Meds Folic Acid 1 mg PO BEDTIME 07/31/16 [History] Vit Calc,Iron,Folic [ Vitamins] 1 each PO DAILY 07/31/16 [ History] Zonisamide [Zonegran] 400 mg PO BEDTIME 07/31/16 [History] lamoTRIgine [Lamotrigine] 200 mg PO DAILY 07/31/16 [History] Referrals: Suleman Darling MD [Physician] - (1-2 weeks) - Discharge Summary/Plan Comment DC Time >30 min.: Yes - General Info Date of Service: 05/03/18 Functional Status: Reports: Pain Controlled - Review of Systems General: Reports: No Symptoms HEENT: Reports: No Symptoms Pulmonary: Reports: No Symptoms Cardiovascular: Reports: No Symptoms Gastrointestinal: Reports: No Symptoms Genitourinary: Reports: No Symptoms Musculoskeletal: Reports: No Symptoms Skin: Reports: No Symptoms Neurological: Reports: No Symptoms Psychiatric: Reports: No Symptoms - Patient Data Vitals - Most Recent: Last Vital Signs Temp 36.7 C 05/02/18 20:25 Pulse 77 05/03/18 03:35 Resp 16 05/03/18 03:35 BP 121/78 05/03/18 03:35 Pulse Ox 100 05/03/18 03:35 Weight - Most Recent: 100.244 kg I&O - Last 24 hours: Intake & Output 05/02/18 05/03/18 05/03/18 22:59 06:59 14:59 Intake Total 0 Balance 0 Med Orders - Current: Current Medications Benzocaine/Menthol (Dermoplast Pain Relief [place]) 0 gm TOP ASDIRECTED PRN PRN Reason: Perineal Comfort Measure Last Admin: 05/02/18 00:13 Dose: 1 canister Docusate Sodium (Colace) 100 mg PO BID PRN PRN Reason: Constipation Last Admin: 05/02/18 18:40 Dose: 100 mg Emollient Ointment (Lansinoh Hpa) 0 gm TOP ASDIRECTED PRN PRN Reason: Sore Nipples Ibuprofen (Motrin) 600 mg PO Q6H PRN PRN Reason: Mild pain or fever Last Admin: 05/03/18 03:34 Dose: 600 mg Witch Ronit (Tucks) 1 pad TOP ASDIRECTED PRN PRN Reason: Hemorrhoid pain Last Admin: 05/02/18 00:13 Dose: 1 tub Discontinued Medications Calcium Carbonate/Glycine (Tums) 1,000 mg PO Q2H PRN PRN Reason: Indigestion Diphenhydramine HCl (Benadryl) 25 mg IVPUSH Q6H PRN PRN Reason: Itching Ephedrine Sulfate (Ephedrine Sulfate) 5 mg IVPUSH ASDIRECTED PRN PRN Reason: HYPOTENTSION Fentanyl (Sublimaze) 100 mcg EPIDUR Q3H PRN PRN Reason: Pain Last Admin: 05/01/18 21:55 Dose: 100 mcg Fentanyl (Sublimaze) Confirm Administered Dose 100 mcg .ROUTE .[facility]-MED ONE Stop: 05/01/18 21:45 Last Admin: 05/02/18 22:28 Dose: Not Given Fentanyl/Bupivacaine HCl (Fentanyl/Bupivacaine/Ns 2 Mcg-0.125% 100 Ml) 100 ml EPIDUR ASDIRECTED [facility] Fentanyl/Bupivacaine HCl (Zwbpymkq-Sdyqe-Jq 2 Mcg/Ml-0.125%) 100 ml EP ASDIRECTED [facility] Last Admin: 05/01/18 21:56 Dose: 100 ml Lactated Ringer's (Ringers, Lactated) 1,000 mls @ 100 mls/hr IV ASDIRECTED [facility] Last Admin: 05/02/18 00:11 Dose: 100 mls/hr Oxytocin/Lactated Ringer's (Pitocin In Lr 10 Units/1,000 Ml) 10 unit in 1,000 mls @ 500 mls/hr IV .CONTINUOUS [facility] Last Admin: 05/02/18 00:12 Dose: 500 mls/hr Nalbuphine HCl (Nubain) 10 mg IVPUSH Q2H PRN PRN Reason: pain Ondansetron HCl (Zofran) 4 mg IVPUSH Q4H PRN PRN Reason: Nausea/Vomiting Sodium Chloride (Saline Flush) 10 ml FLUSH ASDIRECTED PRN PRN Reason: Keep Vein Open - Exam General: Reports: Alert, Oriented HEENT: Reports: Pupils Equal, Pupils Reactive, EOMI, Mucous Membr. Moist/[place] Neck: Reports: Supple Lungs: Reports: Clear to Auscultation, Normal Respiratory Effort Cardiovascular: Reports: Regular Rate, Regular Rhythm GI/Abdominal Exam: Normal Bowel Sounds, Soft, Non-Tender, No Organomegaly, No Distention, No Abnormal Bruit, No Mass, Pelvis Stable (Female) Exam: Normal External Exam, Normal Speculum Exam, Normal Bimanual Exam Rectal (Female) Exam: Normal Exam Back Exam: Reports: Normal Inspection, Full Range of Motion Extremities: Normal Inspection, Normal Range of Motion, Non-Tender, No Pedal Edema, Normal Capillary Refill Skin: Reports: Warm, Dry, Intact Wound/Incisions: Reports: Healing Well Neurological: Reports: No New Focal Deficit Psy/Mental Status: Reports: Alert, Normal Affect, Normal Mood
[2018-05-03 11:27] VITALS: BP 109/63
== END 2018-05-03 11:25 | disposition home or self-care (01) | DRG 560 ==
LOC: JD.OB 19:26 → JD.OBCHECK 19:26 → JD.OB 20:23 → OBSVTOIN 23:03
PROVIDERS: ADMIT Obstetrics & Gynecology; ATTEND Obstetrics & Gynecology
PROC: 0HQ9XZZ Repair Perineum Skin, External Approach (ICD-10-PCS; principal; 2018-05-01)
PROC: 10E0XZZ Delivery of Products of Conception, External Approach (ICD-10-PCS; principal; 2018-05-01)
PROC: 3E0R3BZ Introduction of Anesthetic Agent into Spinal Canal, Percutaneous Approach (ICD-10-PCS; 2018-05-01)
PROC: 00HU33Z Insertion of Infusion Device into Spinal Canal, Percutaneous Approach (ICD-10-PCS; 2018-05-01)
DX: O48.0 Post-term pregnancy (principal); Z3A.40 40 weeks gestation of pregnancy; O99.354 Diseases of the nervous system complicating childbirth; G40.909 Epilepsy, unspecified, not intractable, without status epilepticus; Z37.0 Single live birth; Z79.899 Other long term (current) drug therapy; O99.62 Diseases of the digestive system complicating childbirth; K21.9 Gastro-esophageal reflux disease without esophagitis; O70.0 First degree perineal laceration during delivery
CPT/HCPCS: 36415; 59025; 59409; 85027; A9270-GY; J2590; J3010; J3490; J7120

== ENCOUNTER 2020-05-18 21:44 | Emergency (ER) | payer BC, MEDICAID ==
[2020-05-18 21:58] VITALS: PULSE 120
[2020-05-18] MEDS ORDERED: Ibuprofen 600 MG Tab PO ONE (22:16)
--- NOTE | 2020-05-18 22:23 | EDM.PDOC ---
ED HPI GENERAL MEDICAL PROBLEM - General Chief Complaint: Neurological Problem Stated Complaint: SEIZURE Time Seen by Provider: 05/18/20 21:47 Source of Information: Reports: Patient, Family () History Limitations: Reports: No Limitations - History of Present Illness INITIAL COMMENTS - FREE TEXT/NARRATIVE: Mrs. Pope is a very pleasant 30-year-old woman with a past medical history significant for seizure disorder since infancy, who is now brought to the ED by her , after suffering a generalized tonic-clonic seizure that lasted about 5 to 6 minutes, around 21:30 tonight. The patient's witnessed the seizure, although he did not witness her initially fall in the kitchen. She apparently struck her head either on the floor or the stove, suffering a co ntusion to her left forehead, however, she did not bite her tongue or suffer any other injuries. There was no incontinence of bowel or bladder. The patient was evaluated by EMS, however, the patient's preferred to bring her to the ED himself. The patient states that this is the first time she has had a seizure in about 6 to 7 years. It had been an additional 6 to 7 years since her last seizure before then, as well. From the patient's perspective, she states that she recalls talking to her on the couch, then the next thing she knew, she heard him, as well as her [id number], talking to her. The patient states that she has been compliant with her antiepileptic medications. No recent sleep deprivation. No recent illness. No recent alcohol. Here in the ED, the patient's initial BP is found to be mildly elevated at 145/79, with tachycardia of 120 bpm. She is afebrile, saturating 100% on room air. Prior to tejas's seizure, the patient denies having a recent fever, chills, sore throat, ear pain, nasal or sinus congestion, cough, dyspnea, chest pain, palpitations, nausea, vomiting, constipation, diarrhea, abdominal pain, urinary symptoms, recent weight gain or weight loss, recent bloody bowel movements or black bowel movements, recent joint aches, headaches, or rashes. The patient's PCP is Dr. Jason Ortez. She does not recall the name of her Neurologist in [place]. Her Mobile Service Rv Technician is Dr. Suleman Darling. She states that she already received an influenza vaccine this season. Left Forehead Pain Score (Numeric/FACES): 4 - Related Data Allergies Allergy/AdvReac Type Severity Reaction Status Date / Time No Known Allergies Allergy Verified 05/18/20 21:58 Home Meds: Home Meds Folic Acid 1 mg PO BEDTIME 07/31/16 [History] Vit Calc,Iron,Folic [ Vitamins] 1 each PO DAILY 07/31/16 [History] Zonisamide [Zonegran] 300 mg PO BEDTIME 07/31/16 [History] lamoTRIgine [Lamotrigine] 300 mg PO DAILY 07/31/16 [History] Mv-Mn/Iron/Folic Acid/Herb 190 [Vitamin D3 Complete Caplet] 50,000 unit PO DAILY 05/18/20 [History] Past Medical History HEENT History: Reports: Impaired Vision (wears contacts) Neurological History: Reports: Seizure Endocrine/Metabolic History: Reports: Obesity/BMI 30+, Vitamin D Deficiency - Past Surgical History HEENT Surgical History: Reports: Oral Surgery (dental extractions) GI Surgical History: Reports: Appendectomy Social & Family History - Tobacco Use Tobacco Use Status *Q: Never Tobacco User - Alcohol Use Alcohol Use History: Yes Alcohol Use Frequency: Socially - Recreational Drug Use Recreational Drug Use: No - Living Situation & Occupation Living situation: Reports: , with Spouse, with Family (2 kids) Occupation: Employed ([employer]) ED ROS GENERAL - Review of Systems Review Of Systems: Comprehensive ROS is negative, except as noted in HPI. - Physical Exam Exam: See Below Exam Limited By: No Limitations General Appearance: Alert, WD/WN, No Apparent Distress Eye Exam: Bilateral Eye: EOMI, Normal Inspection, PERRL Ears: Normal External Exam, Normal Canal, Hearing Grossly Normal, Normal TMs Nose: Normal Inspection, Normal Mucosa, No Blood Throat/Mouth: Normal Inspection, Normal Lips, Normal Teeth, Normal Gums, Normal Oropharynx, Normal Voice, No Airway Compromise Head Exam: Normocephalic, Facial Abrasions (left forehead), Facial Swelling (left forehead) Neck: Normal Inspection, Supple, Non-Tender, Full Range of Motion. No: Lymphadenopathy (L), Lymphadenopathy (R) Respiratory/Chest: No Respiratory Distress, Lungs Clear, Normal Breath Sounds, No Accessory Muscle Use Cardiovascular: Normal Peripheral Pulses, Regular Rate, Rhythm, No Gallop, No JVD, No Murmur, No Rub GI/Abdominal: Normal Bowel Sounds, Soft, Non-Tender, No Organomegaly, No Distention, No Abnormal Bruit, No Mass Neuro Exam (Abbreviated): Alert, Oriented, CN II-XII Intact, Normal Cognition, No Motor/Sensory Deficits Back Exam: Normal Inspection, Full Range of Motion, NT Extremities: Normal Inspection, Normal Range of Motion, Normal Capillary Refill Psychiatric: Normal Affect Skin Exam: Warm, Dry, Intact, Normal Color, No Rash Course - Vital Signs Last Recorded V/S: Last Vital Signs Temp 36.6 C 05/18/20 21:52 Pulse 120 H 05/18/20 21:52 Resp 16 05/18/20 23:53 BP 126/62 05/18/20 23:53 Pulse Ox 98 05/18/20 23:53 - Orders/Labs/Meds Orders: Active Orders 24 hr Category Date Time Status Head wo Cont [CT] Stat Exams 05/18/20 22:23 Taken LAMOTRIGINE, SERUM [REF] Stat Lab 05/18/20 22:30 Received ZONISAMIDE(ZONEGRAN), SERUM [REF] Stat Lab 05/18/20 22:30 Received Labs: Laboratory Tests 05/18/20 05/18/20 Range/Units 22:30 22:30 WBC 7.98 (3.98-10.04) K/mm3 RBC 4.78 (3.98-5.22) M/mm3 Hgb 13.4 (11.2-15.7) gm/dl Hct 40.4 (34.1-44.9) % MCV 84.5 (79.4-94.8) fl MCH 28.0 (25.6-32.2) pg MCHC 33.2 (32.2-35.5) g/dl RDW Std Deviation 40.4 (36.4-46.3) fL Plt Count 315 (182-369) K/mm3 MPV 11.2 (9.4-12.3) fl Neutrophils % (Manual) 77 H (40-60) % Band Neutrophils % 1 (0-10) % Lymphocytes % (Manual) 17 L (20-40) % Atypical Lymphs % 0 % Monocytes % (Manual) 4 (2-10) % Eosinophils % (Manual) 1 (0.7-5.8) % Basophils % (Manual) 0 L (0.1-1.2) Platelet Estimate Adequate RBC Morph Comment Normal Sodium 142 (136-145) mEq/L Potassium 3.5 (3.5-5.1) mEq/L Chloride 105 (98-107) mEq/L Carbon Dioxide 24 (21-32) mEq/L Anion Gap 16.5 H (5-15) BUN 14 (7-18) mg/dL Creatinine 1.0 (0.55-1.02) mg/dL Est Cr Clr Drug Dosing 78.41 mL/min Estimated GFR (MDRD) > 60 (>60) mL/min BUN/Creatinine Ratio 14.0 (14-18) Glucose 116 H (74-106) mg/dL Calcium 9.2 (8.5-10.1) mg/dL Phosphorus 2.7 (2.6-4.7) mg/dL Magnesium 1.7 L (1.8-2.4) mg/dl Total Bilirubin 0.2 (0.2-1.0) mg/dL AST 17 (15-37) U/L ALT 29 (14-59) U/L Alkaline Phosphatase 102 (46-116) U/L Total Protein 7.1 (6.4-8.2) g/dl Albumin 3.7 (3.4-5.0) g/dl Globulin 3.4 gm/dL Albumin/Globulin Ratio 1.1 (1-2) Meds: Medications Discontinued Medications Generic Name Dose Route Start Last Admin Trade Name Freq PRN Reason Stop Dose Admin Ibuprofen 600 mg 05/18/20 22:16 05/18/20 22:35 Motrin PO 05/18/20 22:17 600 mg ONETIME ONE Administration - Re-Assessments/Exams Free Text/Narrative Re-Assessment/Exam: 05/18/20 22:16 As above, the patient, who has a history of epilepsy, suffered a generalized tonic-clonic seizure lasting about 5 to 6 minutes, about 45 minutes ago. She suffered a contusion and scratches to her left forehead, but is otherwise uninjured. She did not bite her tongue or suffer incontinence. She is complaining of pain to her left forehead, but denies pain elsewhere. Her neurologic exam is completely normal. I have ordered several blood tests to look for potential decrease use of seizure threshold, and I have also ordered both serum lamotrigine and zonisamide levels, for her PCP to review later. Since this is not the patient's first seizure, she is not a child, and she does not have AIDS, she would ordinarily not meet criterion for an emergency CT of the head without contrast, however, she is quite certain that she has never previously undergone an imaging study of her head, and for that reason, I have ordered a CT of the head without contrast. 05/18/20 23:28 CT of the head without contrast is read by [facility] as: 1. No acute intracranial abnormality. 2. Soft tissue swelling in the left frontal scalp. The patient's CBC is unremarkable. Her CMP is remarkable for an anion gap slightly elevated at 16.5, but with a bicarbonate normal at 24, and slight hyperglycemia of 116, with the remainder of her CMP being unremarkable. Her magnesium level is slightly depressed at 1.7. Her phosphorus level is within normal limits at 2.7. 05/18/20 23:42 Test results discussed with the patient and her . As above, today's work-up is grossly unremarkable. I will have her follow-up with Dr. Ortez this coming week, in order to check on the results of her lamotrigine and zonisamide levels. Departure - Departure Time of Disposition: 23:43 Disposition: Home, Self-Care 01 Condition: Good Clinical Impression: Epileptic seizure, Forehead contusion - Discharge Information *PRESCRIPTION DRUG MONITORING PROGRAM REVIEWED*: Not Applicable *COPY OF PRESCRIPTION DRUG MONITORING REPORT IN PATIENT ANJEL: Not Applicable Instructions: Epilepsy, [id number] Referrals: Jason Prajapati MD [Primary Care Provider] - Suleman Darling MD [Physician] - Forms: ED Department Discharge Additional Instructions: You were seen in the emergency room after suffering a generalized tonic-clonic seizure at home. Work-up in the ER included several blood tests, including send out levels for both lamotrigine and zonisamide, and a CT scan of your head without contrast. Your entire work-up was unremarkable. We recommend that you follow-up with your PCP, Dr. Ortez, this coming week, to check on your lamotrigine and zonisamide levels. In the meantime, you are to continue to take your usual medications as prescribed. If any other problems, please do not hesitate to return to the ER. Sepsis Event Note (ED) - Evaluation Sepsis Screening Result: No Definite Risk - Focused Exam Vital Signs: Vital Signs Temp Pulse Resp BP Pulse Ox 05/18/20 23:53 16 126/62 98 05/18/20 21:52 36.6 C 120 H 18 145/79 H 100 - My Orders Last 24 Hours: My Active Orders 05/18/20 22:23 Head wo Cont [CT] Stat 05/18/20 22:30 LAMOTRIGINE, SERUM [REF] Stat ZONISAMIDE(ZONEGRAN), SERUM [REF] Stat - Assessment/Plan Last 24 Hours: My Active Orders 05/18/20 22:23 Head wo Cont [CT] Stat 05/18/20 22:30 LAMOTRIGINE, SERUM [REF] Stat ZONISAMIDE(ZONEGRAN), SERUM [REF] Stat
[2020-05-18 23:55] VITALS: BP 126/62
--- NOTE | 2020-05-19 10:31 | CT ---
Head CT Technique: Multiple axial sections through the brain were obtained. Intravenous contrast was utilized. Comparison: No prior intracranial imaging is available. Findings: Slight soft tissue swelling is noted within the left frontal scalp. Visualized paranasal sinuses and mastoid sinuses show nothing acute. No acute calvarial abnormality is appreciated. Ventricles along with basal cisterns and sulci over the convexities are within normal limits for the patient's age. No abnormal parenchymal densities are seen. No evidence of intracranial hemorrhage. No midline shift or mass-effect is appreciated. Impression: 1. Soft tissue swelling within the left frontal scalp. 2. No acute intracranial abnormality is identified. Diagnostic code #2 I agree with preliminary report issued by Mehdi finalized on 05/18/20, 11:54 PM [employer]
== END 2020-05-18 23:53 | disposition home or self-care (01) ==
LOC: JD.ED 21:44
DX: G40.909 Epilepsy, unspecified, not intractable, without status epilepticus (principal); S00.83XA Contusion of other part of head, initial encounter; E66.9 Obesity, unspecified; Z68.35 Body mass index [BMI] 35.0-35.9, adult; Z79.899 Other long term (current) drug therapy; W22.8XXA Striking against or struck by other objects, initial encounter
CPT/HCPCS: 70450; 80053; 80175; 80203; 83735; 84100; 85007; 85027; 99284; A9270; 36415

== ENCOUNTER 2022-05-14 18:59 | Emergency (ER) | payer BC, MEDICAID ==
[2022-05-14 21:24] LABS: CORONAVIRUS COVID-19 NAA NEGATIVE (NEGATIVE)
[2022-05-14] MEDS ORDERED: Penicillin G Benzathine 1,200,000 Units/2 ML Syringe IM ONE (21:28)
[2022-05-14 21:54] VITALS: BP 120/65; PULSE 95
== END 2022-05-14 21:54 | disposition home or self-care (01) ==
LOC: JD.ED 18:59
DX: J02.0 Streptococcal pharyngitis (principal); K21.9 Gastro-esophageal reflux disease without esophagitis; E66.9 Obesity, unspecified; Z68.36 Body mass index [BMI] 36.0-36.9, adult; Z20.822 Contact with and (suspected) exposure to COVID-19
CPT/HCPCS: 0241U; 36415; 86308; 87651; 96372; 99283; J0561

== ENCOUNTER 2023-11-17 11:04 | Emergency (ER) | payer BC ==
[2023-11-17 19:09] VITALS: BP 126/64; PULSE 86
== END 2023-11-17 14:55 | disposition home or self-care (01) ==
LOC: JD.ED 11:04
DX: R29.6 Repeated falls (principal); Z86.69 Personal history of other diseases of the nervous system and sense organs; E66.9 Obesity, unspecified; Z79.899 Other long term (current) drug therapy; Z90.49 Acquired absence of other specified parts of digestive tract; Z68.35 Body mass index [BMI] 35.0-35.9, adult
CPT/HCPCS: 70551; 70551-26; 82947; 99283; 99284

== ENCOUNTER 2024-07-22 11:35 | Emergency (ER) | payer BC ==
[2024-07-22 12:58] LABS: LACTIC ACID 0.9 mmol/L (0.4-2.0)
[2024-07-22] MEDS: Sodium Chloride 0.9% 1,000 ML IV SCH (13:01)
[2024-07-22 13:22] LABS: MAGNESIUM 1.9 mg/dL (1.8-2.4); TSH 1.765 uIU/mL (0.358-3.74)
[2024-07-22 17:02] VITALS: BP 124/97; PULSE 110
== END 2024-07-22 16:00 | disposition home or self-care (01) ==
LOC: JD.ED 11:35
DX: R55 Syncope and collapse (principal); E66.9 Obesity, unspecified; Z79.899 Other long term (current) drug therapy; Z79.84 Long term (current) use of oral hypoglycemic drugs; Z90.49 Acquired absence of other specified parts of digestive tract; Z68.33 Body mass index [BMI] 33.0-33.9, adult; W19.XXXA Unspecified fall, initial encounter
CPT/HCPCS: 36415; 70450; 83605; 83735; 84443; 84484; 93005; 93246; 96360; 99284; J7030

== ENCOUNTER 2024-11-05 09:02 | Emergency (ER) | payer BC ==
[2024-11-05] MEDS: Ketorolac 60 MG/2 ML SDV IM ONE (09:39)
[2024-11-05] MEDS: Acetaminophen/oxyCODONE 325-5 MG Tab PO ONE (09:39)
[2024-11-05 10:33] VITALS: BP 114/41; PULSE 80
== END 2024-11-05 10:38 | disposition home or self-care (01) ==
LOC: JD.ED 09:02
DX: M54.2 Cervicalgia (principal); E66.9 Obesity, unspecified; Z90.49 Acquired absence of other specified parts of digestive tract; Z79.84 Long term (current) use of oral hypoglycemic drugs; Z79.899 Other long term (current) drug therapy; W10.8XXA Fall (on) (from) other stairs and steps, initial encounter; Z68.34 Body mass index [BMI] 34.0-34.9, adult
CPT/HCPCS: 72125; 96372; 99283; A9270; J1885